=== PATIENT | female | born 1955 | race Caucasian/White ===

== ENCOUNTER → 2016-12-26 | Outpatient (CLI) | payer OTHER ==
[~2016-12-26] MED LIST: ACETAMINOPHEN325 M1 PO; ACETAMINOPHEN650 M5 PO; ASPIRIN EC81 M1; ASPIRIN81 M2 PO; CALCIUM + D SO1 EACH PO; EVISTA PO; KEFLEX500 MG PO; NOHOMEMEDICATIONS; NORCO 5-325 TA1 EACH PO; PERCOCET 5-3251 EACH PO; ROXICET 5-3251 EACH PO; VITAMIN D400 UNI1; ZENPEP DR 15,01 EACH PO; ZOFRAN4 MG PO
[2016-12-26 12:22] LABS: CREATININE 0.8 mg/dL (0.6-1.0)
== END ==
LOC: LABMALL 11:44
PROVIDERS: Surgery
DX: N63 Unspecified lump in breast (principal); N64.59 Other signs and symptoms in breast; Z85.3 Personal history of malignant neoplasm of breast

== ENCOUNTER → 2018-01-07 | Outpatient (CLI) | payer OTHER | LOC: MRI 01:18 | DX: N64.59 Other signs and symptoms in breast (principal); N63.10 Unspecified lump in the right breast, unspecified quadrant; N63.20 Unspecified lump in the left breast, unspecified quadrant; Z80.3 Family history of malignant neoplasm of breast ==

== ENCOUNTER 2018-12-14 08:57 | Emergency (ER) | payer OTHER ==
[~2018-12-14] VITALS: Ht 165.1 cm; Wt 61.2 kg
[2018-12-14 09:57] LABS: ANION GAP 7 mmol/L (7-16); BUN 15 mg/dL (7-18); CALCIUM 10.1 mg/dL (8.5-10.1); CHLORIDE 105 mmol/L (98-107); CO2 27 mmol/L (21-32); CREATININE 0.9 mg/dL (0.6-1.0); GLUCOSE 118 mg/dL (74-106); SODIUM 139 mmol/L (136-145)
[2018-12-14 10:03] LABS: ABSOLUTE NEUTROPHILS 2.6 thou/uL (1.4-8.2); BASOPHILS 0.6 % (0.0-2.0); EOSINOPHILS 1.9 % (0.0-3.0); HEMATOCRIT 42.1 % (37.0-47.0); HEMOGLOBIN 13.4 gm/dL (12.0-15.0); LYMPHOCYTES 34.2 % (24.0-44.0); MCH 30.1 pg (26.0-34.0); MCHC 31.7 g/dL (28.0-37.0); PLATELET COUNT 184 thou/uL (150-400); POLYS 56.3 % (36.0-66.0); RBC 4.43 mil/uL (4.20-5.00); RDW 15.2 % (10.5-14.5); WBC 4.7 thou/uL (4.0-11.0)
[2018-12-14 10:08] LABS: ALBUMIN 3.9 g/dL (3.4-5.0); MAGNESIUM 1.9 mg/dL (1.8-2.4); SGOT 21 U/L (15-37); SGPT 16 U/L (30-65); TOTAL BILIRUBIN 0.4 mg/dL (<0.1-1.0); TROPONIN-I <0.06 ng/mL (<0.06)
[2018-12-14 11:33] LABS: URINE BILIRUBIN NEGATIVE (Negative); URINE BLOOD NEGATIVE (Negative); URINE CLARITY CLEAR; URINE COLOR YELLOW; URINE GLUCOSE-RANDOM* NEGATIVE (Negative); URINE KETONES NEGATIVE (Negative); URINE LEUKOCYTES-REFLEX 1+ (Negative); URINE NITRITE-REFLEX NEGATIVE (Negative); URINE PROTEIN (DIPSTICK) NEGATIVE (Negative); URINE SPECIFIC GRAVITY <= 1.005 (1.005-1.035); URINE UROBILINOGEN 0.2 E.U./dl (0.2-1.0)
[2018-12-14 11:42] LABS: BACTERIA-REFLEX 1-9 Few /HPF (None Seen); CASTS None Seen /LPF (None Seen); CRYSTALS None Seen /LPF (None Seen); SQUAMOUS 0-3 Few /LPF (0-3); URINE RBC None Seen /HPF (0-2); URINE WBC-REFLEX 0-5 Rare /HPF (0-5)
[2018-12-14 12:08] VITALS: BP 127/72
--- NOTE | 2018-12-15 07:58 | EKG ---
[address] [place] [place] [address] ELECTROCARDIOGRAM REPORT Name: HEATHERSILKE Darnell Room #: [facility]#: [id number] ������������������ Admission: 12/14/18 ������������������ Attend Phys: Discharge: 12/14/18 ������������������ Date of : 51 Report #: [id number] ����������������������������������������������������������������� [id number] THIS REPORT FOR: //name// [facility] ED Test Date: 2018-12-14 Test Time: 09:15:05 Pat Name: SILKE ROMERO Department: Room: Gender: F Kitchen Food Server: LEÓN : 1955 Requested By: Aman Ospina Order Number: [id number] MD: Mike Shetty Measurements Intervals [place] Rate: 87 P: 71 TX: 156 QRS: 71 QRSD: 99 T: 67 QT: 363 QTc: 437 Interpretive Statements Sinus rhythm Multiple ventricular premature complexes Compared to ECG 02/28/2013 03:36:39 Ventricular premature complex(es) now present Electronically Signed On 12-15-2018 7:57:55 CDT by Mike Shetty [email or web address] ��������������������������������������������� <ELECTRONICALLY SIGNED> ���������������������������������������� By: Mike Shetty MD, [facility] ��������������������������������������������� 12/15/18 [id number] 4 Mike Shetty MD, FAC /EPI
== END 2018-12-14 12:16 | disposition home or self-care (01) ==
LOC: ER 08:57
PROVIDERS: Emergency Medicine
DX: R42 Dizziness and giddiness (principal); Z90.89 Acquired absence of other organs; Z98.890 Other specified postprocedural states; Z90.49 Acquired absence of other specified parts of digestive tract; Z88.6 Allergy status to analgesic agent; Z88.5 Allergy status to narcotic agent; Z88.8 Allergy status to other drugs, medicaments and biological substances; Z87.891 Personal history of nicotine dependence

== ENCOUNTER → 2019-01-18 | Outpatient (CLI) | payer OTHER ==
[2019-01-18 10:03] LABS: CREATININE 0.8 mg/dL (0.6-1.0)
== END ==
LOC: MRI 09:27
PROVIDERS: Surgery
DX: N64.59 Other signs and symptoms in breast (principal); N63.0 Unspecified lump in unspecified breast; Z80.3 Family history of malignant neoplasm of breast

== ENCOUNTER → 2020-02-13 | Outpatient (CLI) | payer OTHER ==
[2020-02-13 09:45] LABS: CREATININE 0.9 mg/dL (0.6-1.0)
== END ==
LOC: MRI 09:17
PROVIDERS: ATTEND Surgery
DX: N64.59 Other signs and symptoms in breast (principal); N63.0 Unspecified lump in unspecified breast; Z80.3 Family history of malignant neoplasm of breast